=== PATIENT | male | born 1975 | race Caucasian/White ===

== ENCOUNTER 2023-05-25 01:13 | Inpatient (IN) | payer OTHER ==
[2023-05-25 03:42] VITALS: BMI 25.4
[2023-05-25] MEDS: Morphine 2 MG/ML VIAL SLOW IVP PRN ×3 (03:46→22:51)
[2023-05-25] MEDS: Sodium Chloride 0.9% 1,000 ML IV SCH ×4 (03:46→16:06)
[2023-05-25] MEDS: CEFAZOLIN 2 GM in Sodium Chloride 0.9% 100 ML IVPB SCH ×3 (03:46→19:21)
[2023-05-25] MEDS: Acetaminophen 500 MG TAB PO SCH ×4 (05:43→23:19)
[2023-05-25] MEDS ORDERED: traMADol HCl 50 MG TAB PO PRN (08:41)
[2023-05-25] MEDS ORDERED: Dextrose 50% Abboject 50 ML SYRINGE SLOW IVP PRN (08:42)
[2023-05-25] MEDS ORDERED: Ipratropium/Albuterol 3 ML NEB NEB PRN (08:42)
[2023-05-25] MEDS ORDERED: Ondansetron PF 4 MG/2 ML Vial IVP PRN (08:42)
[2023-05-25] MEDS ORDERED: Dextrose 5% in Water 1,000 ML IV PRN (08:42)
[2023-05-25] MEDS ORDERED: Glucagon 1 MG/ML KIT IM PRN (08:42)
[2023-05-25] MEDS ORDERED: Morphine 2 MG/ML VIAL SLOW IVP SCH (08:45)
[2023-05-25] MEDS ORDERED: Ketorolac Tromethamine 30 MG/ML VIAL IVP SCH ×2 (09:00→12:00)
[2023-05-25] MEDS: Famotidine 20 MG TAB PO SCH ×2 (09:10→19:56)
[2023-05-25] MEDS: traMADol HCl 50 MG TAB PO SCH ×3 (12:22→23:20)
[2023-05-25] MEDS: Ketorolac Tromethamine 30 MG/ML VIAL IVP SCH ×2 (14:00→20:00)
[2023-05-26] MEDS: CEFAZOLIN 2 GM in Sodium Chloride 0.9% 100 ML IVPB SCH ×2 (03:26→14:04)
[2023-05-26] MEDS: Ketorolac Tromethamine 30 MG/ML VIAL IVP SCH ×4 (03:26→21:29)
[2023-05-26] MEDS: Acetaminophen 500 MG TAB PO SCH ×3 (05:05→18:27)
[2023-05-26] MEDS: traMADol HCl 50 MG TAB PO SCH ×3 (05:06→18:27)
[2023-05-26 06:22] LABS: #Basophils 0.1 thou/uL (0.0-0.2); #Eosinphils 0.3 thou/uL (0.0-0.7); #Monocytes 0.9 thou/uL (0.11-0.59); #Neutrophils 4.7 thou/uL (1.40-6.50); %Eosinophils 3.8 % (0.0-10.0); %Lymphocytes 24.9 % (21.0-51.0); %Monocytes 11.1 % (0.0-10.0); %Neutrophils 58.9 % (42.0-75.0); Hemoglobin 13.8 g/dL (14.0-18.0); Mean Corpuscular HGB CONC 33.7 g/dL (32.0-36.0); Mean Corpuscular Hemoglobin 30.3 pg (27.0-31.0); Mean Corpuscular Volume 90.1 fl (78.0-98.0); Mean Platelet Volume 10.1 fL (7.4-10.4); Platelet Count 192 10x3/uL (130-400); RBC Distribution Width 12.6 % (11.5-14.5); Red Blood Cell (RBC) Count 4.55 mill/uL (4.70-6.10)
[2023-05-26 06:48] LABS: Anion Gap 13 mmol/L (10-20); BUN (Urea Nitrogen) 6 mg/dL (8.9-20.6); Calc. Creatinine Clearance 135 mL/min (70-130); Calcium 8.8 mg/dL (7.8-10.44); Carbon Dioxide 23 mmol/L (22-29); Chloride 106 mmol/L (98-107); Estimated GFR 110; Glucose 88 mg/dL (70-105); Potassium 3.9 mmol/L (3.5-5.1); Sodium 138 mmol/L (136-145)
[2023-05-26] MEDS: Famotidine 20 MG TAB PO SCH ×2 (07:41→21:31)
[2023-05-26] MEDS: Morphine 2 MG/ML VIAL SLOW IVP PRN ×3 (07:42→23:44)
[2023-05-26] MEDS ORDERED: Oxymetazoline HCl 0.05% (30 ML BOT) ONE (10:14)
[2023-05-26] MEDS ORDERED: Midazolam HCl 2 mg/2 ml Vial ONE (10:16)
[2023-05-26] MEDS ORDERED: Fentanyl 250 MCG/5 ML VIAL ONE (10:39)
[2023-05-26] MEDS ORDERED: Dexmedetomidine 200 MCG/2 ML VIAL ONE (10:39)
[2023-05-26] MEDS ORDERED: EPINEPHrine 1 MG/ML AMP ONE (10:43)
[2023-05-26] MEDS ORDERED: Lidocaine 1% (PF) 30 ML VIAL ONE (10:43)
[2023-05-26] MEDS ORDERED: Chlorhexidine Gluconate 15 ML UDCUP SSP ONE ×2 (10:43→11:35)
[2023-05-26] MEDS ORDERED: Rocuronium Bromide 10 MG/ML (10ML VIAL) ONE (11:06)
[2023-05-26] MEDS ORDERED: PHENYLEPHRINE-NS 100 MCG/ML 10 ML SYRINGE ONE (11:06)
[2023-05-26] MEDS ORDERED: Lidocaine 1% PF 5 ML VIAL ONE (11:06)
[2023-05-26] MEDS ORDERED: Dexamethasone 20 MG/5 ML VIAL ONE (11:06)
[2023-05-26] MEDS ORDERED: Ondansetron PF 4 MG/2 ML Vial ONE (11:06)
[2023-05-26] MEDS ORDERED: PROPOFOL 200 MG/20 ML VIAL ONE (11:06)
[2023-05-26] MEDS ORDERED: ePHEDrine Sulfate 50 MG/10 ML VIAL ONE (11:06)
[2023-05-26] MEDS ORDERED: SUGAMMADEX SODIUM 200 MG/2 ML VIAL ONE (12:26)
[2023-05-26] MEDS ORDERED: Bacitracin Zinc Ointment 30 gm TUBE ONE (12:54)
[2023-05-26] MEDS ORDERED: Ondansetron HCl/PF 4 MG/2 ML Vial IVP PRN ×2 (13:44→13:45)
[2023-05-26] MEDS ORDERED: Promethazine HCl 25 MG/ML VIAL IM PRN ×2 (13:44→13:45)
[2023-05-26] MEDS ORDERED: Ketorolac Tromethamine 30 MG/ML VIAL IVP PRN (13:45)
[2023-05-26] MEDS ORDERED: Ketorolac Tromethamine 30 MG/ML VIAL ONE (13:46)
[2023-05-26] MEDS ORDERED: fentaNYL 50 mcg/mL 1 mL Vial ONE (13:55)
[2023-05-26] MEDS: Clindamycin/D5W 900 MG in Premix Bag 1 BAG IVPB SCH ×2 (15:52→23:40)
[2023-05-26] MEDS: Dexamethasone 4 mg/ml Vial SLOW IVP SCH (15:52)
[2023-05-26] MEDS ORDERED: Ibuprofen 100 MG/5 ML UDCUP PO PRN (18:42)
[2023-05-26] MEDS: Acetaminophen 325 MG/10.15 ML UDCUP PO SCH (19:19)
[2023-05-26] MEDS: Acetaminophen W/ Codeine 5 ML UDCUP PO SCH (21:28)
[2023-05-26] MEDS: Chlorhexidine Gluconate 15 ML UDCUP SSP SCH (21:31)
[2023-05-27] MEDS: Acetaminophen 325 MG/10.15 ML UDCUP PO SCH ×5 (00:25→20:01)
[2023-05-27] MEDS: Acetaminophen W/ Codeine 5 ML UDCUP PO SCH ×6 (00:27→21:32)
[2023-05-27] MEDS: Dexamethasone 4 mg/ml Vial SLOW IVP SCH ×3 (01:35→20:03)
[2023-05-27] MEDS: Ketorolac Tromethamine 30 MG/ML VIAL IVP SCH ×2 (04:14→19:16)
[2023-05-27] MEDS: Clindamycin/D5W 900 MG in Premix Bag 1 BAG IVPB SCH ×3 (09:27→20:11)
[2023-05-27] MEDS: Famotidine 20 MG TAB PO SCH ×2 (09:35→20:22)
[2023-05-27] MEDS: Chlorhexidine Gluconate 15 ML UDCUP SSP SCH ×2 (09:37→20:24)
[2023-05-27] MEDS: Morphine 2 MG/ML VIAL SLOW IVP PRN (09:43)
[2023-05-27] MEDS: Ibuprofen 100 MG/5 ML UDCUP PO PRN (20:08)
[2023-05-28] MEDS: Dexamethasone 4 mg/ml Vial SLOW IVP SCH (00:21)
[2023-05-28] MEDS: Acetaminophen W/ Codeine 5 ML UDCUP PO SCH ×6 (00:22→19:57)
[2023-05-28] MEDS: Acetaminophen 325 MG/10.15 ML UDCUP PO SCH ×4 (00:24→18:10)
[2023-05-28] MEDS: Clindamycin/D5W 900 MG in Premix Bag 1 BAG IVPB SCH ×3 (04:45→19:57)
[2023-05-28] MEDS: Chlorhexidine Gluconate 15 ML UDCUP SSP SCH ×2 (08:44→19:57)
[2023-05-28] MEDS: Famotidine 20 MG TAB PO SCH ×2 (08:47→19:57)
[2023-05-28] MEDS: Ibuprofen 100 MG/5 ML UDCUP PO PRN (09:56)
[2023-05-28] MEDS ORDERED: Polyethylene Glycol 3350 17 GM Packet PO SCH (10:30)
[2023-05-29] MEDS: Acetaminophen W/ Codeine 5 ML UDCUP PO SCH ×6 (01:59→21:02)
[2023-05-29] MEDS: Acetaminophen 325 MG/10.15 ML UDCUP PO SCH ×4 (01:59→18:11)
[2023-05-29] MEDS: Clindamycin/D5W 900 MG in Premix Bag 1 BAG IVPB SCH ×3 (04:21→21:02)
[2023-05-29] MEDS: Chlorhexidine Gluconate 15 ML UDCUP SSP SCH ×2 (08:32→21:02)
[2023-05-29] MEDS: Famotidine 20 MG TAB PO SCH ×2 (08:33→21:03)
[2023-05-29] MEDS: Polyethylene Glycol 3350 17 GM Packet PO SCH (08:33)
[2023-05-29] MEDS ORDERED: Polyethylene Glycol 3350 17 GM Packet PO SCH (09:00)
[2023-05-30] MEDS: Acetaminophen W/ Codeine 5 ML UDCUP PO SCH ×6 (00:26→20:42)
[2023-05-30] MEDS: Acetaminophen 325 MG/10.15 ML UDCUP PO SCH ×5 (00:29→23:54)
[2023-05-30] MEDS: Clindamycin/D5W 900 MG in Premix Bag 1 BAG IVPB SCH ×2 (05:38→12:21)
[2023-05-30] MEDS: Famotidine 20 MG TAB PO SCH ×2 (08:24→20:43)
[2023-05-30] MEDS: Polyethylene Glycol 3350 17 GM Packet PO SCH (08:25)
[2023-05-30] MEDS: Chlorhexidine Gluconate 15 ML UDCUP SSP SCH ×2 (08:25→20:42)
[2023-05-30] MEDS: Doxycycline 25 MG/5 ML Oral Suspension PO SCH (18:04)
[2023-05-30] MEDS ORDERED: Ibuprofen 100 MG/5 ML UDCUP PO PRN (19:01)
[2023-05-30] MEDS ORDERED: Clindamycin 75 mg/5 ml Oral Suspension PO SCH (22:00)
[2023-05-31] MEDS: Acetaminophen W/ Codeine 5 ML UDCUP PO SCH ×6 (02:26→21:30)
[2023-05-31] MEDS: Doxycycline 25 MG/5 ML Oral Suspension PO SCH ×2 (05:32→17:55)
[2023-05-31] MEDS: Acetaminophen 325 MG/10.15 ML UDCUP PO SCH ×3 (08:31→17:56)
[2023-05-31] MEDS: Famotidine 20 MG TAB PO SCH ×2 (08:32→21:31)
[2023-05-31] MEDS: Polyethylene Glycol 3350 17 GM Packet PO SCH (08:33)
[2023-05-31] MEDS: Chlorhexidine Gluconate 15 ML UDCUP SSP SCH ×2 (08:33→21:30)
[2023-06-01] MEDS: Acetaminophen W/ Codeine 5 ML UDCUP PO SCH ×3 (01:00→08:32)
[2023-06-01] MEDS: Acetaminophen 325 MG/10.15 ML UDCUP PO SCH ×2 (01:00→06:12)
[2023-06-01] MEDS: Doxycycline 25 MG/5 ML Oral Suspension PO SCH (05:40)
[2023-06-01 08:16] VITALS: BP 108/69; TEMP 97.5
[2023-06-01] MEDS: Polyethylene Glycol 3350 17 GM Packet PO SCH (08:32)
[2023-06-01] MEDS: Chlorhexidine Gluconate 15 ML UDCUP SSP SCH (08:33)
[2023-06-01] MEDS: Famotidine 20 MG TAB PO SCH (08:33)
== END 2023-06-01 11:59 | disposition home or self-care (01) | DRG 142 ==
LOC: SJJU 01:13 → UNDOADMIN 01:13 → EEVIPCON 01:16 → SURG B 01:16
PROVIDERS: ADMIT Specialist; ATTEND Specialist
PROC: 0NST04Z Reposition Right Mandible with Internal Fixation Device, Open Approach (ICD-10-PCS; principal; 2023-05-26)
PROC: 0NSVXZZ Reposition Left Mandible, External Approach (ICD-10-PCS; 2023-05-26)
DX: S02.622A Fracture of subcondylar process of left mandible, initial encounter for closed fracture (principal); F41.9 Anxiety disorder, unspecified; W19.XXXA Unspecified fall, initial encounter; S02.66XA Fracture of symphysis of mandible, initial encounter for closed fracture; Z87.891 Personal history of nicotine dependence; Y92.89 Other specified places as the place of occurrence of the external cause
CPT/HCPCS: 12011; 36415; 70450; 70486; 76377; 80048; 85025; 90715; 96372; 96374; 96376; C1713; J0171; J1100; J1885; J2001; J2250; J2270; J2272; J2405; J2704; J3010; J3490; J7050; S0020; U0002